=== PATIENT | male | born 1990 | race Caucasian/White ===

== ENCOUNTER 2020-07-15 02:47 | Emergency (ER) | payer SELFPAY ==
[~2020-07-15] VITALS: Ht 170.2 cm; Wt 61.2 kg
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
--- NOTE | 2020-07-15 03:33 | NUR ---
PATIENT RETURNED FROM CT SCAN
[2020-07-15] MEDS ORDERED: HYDR-3976 PO (04:05)
[2020-07-15] MEDS ORDERED: AMOX-430 PO (04:05)
[2020-07-15] MEDS ORDERED: HYDROCODONE/APAP 5/325MG TABLET ONE (04:10)
[2020-07-15] MEDS ORDERED: AMOX/CLAVULANATE 875 MG TABLET ONE (04:11)
[2020-07-15] MEDS: AMOX/CLAVULANATE 875 MG TABLET PO ONE (04:18)
[2020-07-15] MEDS: HYDROCODONE/APAP 5/325MG TABLET PO ONE (04:18)
[2020-07-15 04:19] VITALS: BP 130/79
--- NOTE | 2020-07-15 04:20 | NUR ---
Patient discharged to home in stable condition. Written and verbal after care instructions given. Patient verbalizes understanding of instruction. ambulatory with a steady gait. Pt instructed not to drive, Pt verbalized understanding.
== END 2020-07-15 04:21 | disposition home or self-care (01) ==
LOC: ER 02:52
DX: S02.2XXA Fracture of nasal bones, initial encounter for closed fracture (principal); S02.32XA Fracture of orbital floor, left side, initial encounter for closed fracture; S02.40DA Maxillary fracture, left side, initial encounter for closed fracture; S00.12XA Contusion of left eyelid and periocular area, initial encounter; S09.8XXA Other specified injuries of head, initial encounter; Y08.89XA Assault by other specified means, initial encounter; Y93.89 Activity, other specified; Y92.89 Other specified places as the place of occurrence of the external cause; Y99.8 Other external cause status
CPT/HCPCS: 70450; 70486; 99285; A6403

== ENCOUNTER 2022-05-26 19:21 | Emergency (ER) | payer OTHER ==
[~2022-05-26] VITALS: Ht 170.2 cm; Wt 66.2 kg
[~2022-05-26 19:21] MED LIST: AMOX-430 PO; HYDR-3976 PO
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
[2022-05-26] MEDS ORDERED: NAPR-1192 PO (22:26)
[2022-05-26] MEDS ORDERED: CYCL5TAB PO (22:26)
[2022-05-26 22:38] VITALS: BP 116/73
--- NOTE | 2022-05-26 22:38 | NUR ---
Sshoulder immobilizer applied per MD order. Patient discharged to home in stable condition. Written and verbal after care instructions given. Patient verbalizes understanding of instruction.
== END 2022-05-26 22:38 | disposition home or self-care (01) ==
LOC: ER 19:25
DX: M25.511 Pain in right shoulder (principal); Z79.899 Other long term (current) drug therapy
CPT/HCPCS: 73030-TC

== ENCOUNTER 2023-07-28 02:59 | Emergency (ER) | payer OTHER ==
[~2023-07-28] VITALS: Ht 170.2 cm; Wt 68.0 kg
[~2023-07-28 02:59] MED LIST changes: +CYCL5TAB PO; +NAPR-1192 PO
[2023-07-28 03:25] VITALS: BP 122/77; TEMP 98.7
[2023-07-28] MEDS ORDERED: LORAZEPAM 1 MG TABLET ONE (03:46)
[2023-07-28] MEDS: LORAZEPAM 1 MG TABLET PO ONE (03:51)
[2023-07-28 04:38] VITALS: O2SAT 98
== END 2023-07-28 04:39 | disposition home or self-care (01) ==
LOC: ER 03:00
DX: F14.129 Cocaine abuse with intoxication, unspecified (principal); F12.929 Cannabis use, unspecified with intoxication, unspecified; F10.129 Alcohol abuse with intoxication, unspecified; Y90.9 Presence of alcohol in blood, level not specified; F41.9 Anxiety disorder, unspecified